=== PATIENT | female | born 1980 | race Two or more races ===

== ENCOUNTER 2019-12-15 13:13 | Outpatient (CLI) | payer OTHER ==
[~2019-12-15 13:13] MED LIST: NAPROXEN SODIU550 MG PO
== END 2019-12-15 14:08 | disposition home or self-care (01) ==
LOC: SONOGRAMA 13:13
PROVIDERS: ATTEND Surgery
DX: N60.11 Diffuse cystic mastopathy of right breast (principal); N60.12 Diffuse cystic mastopathy of left breast

== ENCOUNTER 2020-01-15 16:57 | Outpatient (CLI) | payer OTHER | END 2020-01-15 18:00 | disposition home or self-care (01) | LOC: LAB 16:57 | PROVIDERS: ATTEND Orthopaedic Surgery | DX: D64.89 Other specified anemias (principal); E88.89 Other specified metabolic disorders; N39.0 Urinary tract infection, site not specified; Z22.322 Carrier or suspected carrier of Methicillin resistant Staphylococcus aureus; D68.8 Other specified coagulation defects; Z03.818 Encounter for observation for suspected exposure to other biological agents ruled out; Z76.89 Persons encountering health services in other specified circumstances ==

== ENCOUNTER → 2020-01-15 | Outpatient (CLI) | payer OTHER | END | disposition home or self-care (01) | LOC: RAD 14:22 | PROVIDERS: ATTEND Orthopaedic Surgery | DX: M25.572 Pain in left ankle and joints of left foot (principal); M79.642 Pain in left hand ==

== ENCOUNTER 2020-05-22 12:58 | Emergency (ER) | payer OTHER ==
[~2020-05-22] VITALS: Ht 165.1 cm; Wt 72.6 kg
== END 2020-05-22 20:13 | disposition home or self-care (01) ==
LOC: ER 12:58
DX: S80.01XA Contusion of right knee, initial encounter (principal); W18.09XA Striking against other object with subsequent fall, initial encounter; Y93.89 Activity, other specified; Y92.89 Other specified places as the place of occurrence of the external cause; Y99.8 Other external cause status